=== PATIENT | female | born 1950 | race Caucasian/White ===

== ENCOUNTER 2020-12-27 18:34 | Emergency (ER) | payer MEDICARE ==
--- NOTE | 2020-12-27 19:18 | EDM.PDOC ---
ED HPI GENERAL MEDICAL PROBLEM - General Chief Complaint: General Stated Complaint: sinus problem Time Seen by Provider: 12/27/20 18:45 Source of Information: Reports: Patient History Limitations: Reports: No Limitations - History of Present Illness INITIAL COMMENTS - FREE TEXT/NARRATIVE: 70 YO WF PRESENTS TO ER WITH COMPLAINTS OF INTERMITTENT MILD EPISTAXIS AND NASAL DRAINAGE ON AND OFF SINCE OCT 2020. PT HAS BEEN SEEN AND TREATED FOR RECURRENT SINUS INFECTIONS SINCE THAT TIME. PT FINISHED A COURSE OF ANTIBIOTICS RECENTLY WHICH SHE BEGAN TAKING ON 12/19/2020. PT REPORTS FRUSTRATION WITH CONTINUED MILD EPISTAXIS PROMPTING ER EVALUATION. PT CURRENTLY TAKING ZYRTEC AND SALINE NASAL SPRAY. NO ACTIVE NOSE BLEEDING AT THIS TIME. PT DENIES FEVER/CHILLS, NO HEADACHE OR NECK PAIN. PT REPORTS NO SINUS PRESSURE OR INABILITY TO BLOW HER NOSE. TODAYS COMPLAINT IS MILD EPISTAXIS WHEN SHE BLOWS HER NOSE. Duration: Chronic Location: Reports: Face Severity: Mild Improves with: Reports: None Worsens with: Reports: None Treatments PLATINUM AND PALLADIUM KETTLE TENDER: Reports: Other (see below) - Related Data Allergies Allergy/AdvReac Type Severity Reaction Status Date / Time No Known Allergies Allergy Verified 12/27/20 18:37 Home Meds: Home Meds Aspirin [Halfprin] 81 mg PO DAILY 12/27/20 [History] Calcium Carbonate [Calcium] 600 mg PO BID 12/27/20 [History] Multivit-Min/Iron/Folic/Lutein [Centrum Silver Women Tablet] 1 each PO DAILY 12/27/20 [History] Omeprazole 20 mg PO DAILY 12/27/20 [History] Past Medical History HEENT History: Reports: Sinusitis PRODUCT INFO SPECIALIST History: Reports: Other (See Below) Other PRODUCT INFO SPECIALIST History: x3 C-SECTIONS - Infectious Disease History Infectious Disease History: Reports: Chicken Pox, Measles - Past Surgical History HEENT Surgical History: Reports: None, Tonsillectomy Endocrine Surgical History: Reports: Thyroidectomy Musculoskeletal Surgical History: Reports: Other (See Below) Other Musculoskeletal Surgeries/Procedures:: Foot surgery bilaterally Social & Family History - Tobacco Use Tobacco Use Status *Q: Never Tobacco User Second Hand Smoke Exposure: No - Caffeine Use Caffeine Use: Reports: Coffee - Recreational Drug Use Recreational Drug Use: No ED ROS GENERAL - Review of Systems Review Of Systems: See Below Constitutional: Reports: No Symptoms HEENT: Reports: Nosebleed, Nose Pain, Rhinitis, Sinus Problem. Denies: Dental Pain, Ear Discharge, Ear Pain, Eye Pain, Hearing Loss, Throat Pain, Throat Swelling Respiratory: Reports: No Symptoms Cardiovascular: Reports: No Symptoms Endocrine: Reports: No Symptoms GI/Abdominal: Reports: No Symptoms : Reports: No Symptoms Musculoskeletal: Reports: No Symptoms Skin: Reports: No Symptoms Neurological: Reports: No Symptoms Psychiatric: Reports: No Symptoms Hematologic/Lymphatic: Reports: No Symptoms Immunologic: Reports: No Symptoms ED EXAM, GENERAL - Physical Exam Exam: See Below Exam Limited By: No Limitations General Appearance: Alert, WD/WN, No Apparent Distress Ears: Normal External Exam, Normal Canal, Hearing Grossly Normal, Normal TMs Ear Exam: Bilateral Ear: Auricle Normal, Canal Normal, TM normal Nose: Nasal Tenderness, Nasal Drainage, Other (DRY MUCOUS MEMBRANES WITH MILD EPISTAXIS). No: Nasal Deformity, Nasal Swelling, Clear Rhinorrhea, Nasal Flaring Head: Atraumatic, Normocephalic. No: Facial Swelling, Facial Tenderness, Sinus Tenderness Neck: Normal Inspection, Supple, Non-Tender, Full Range of Motion Respiratory/Chest: No Respiratory Distress, Lungs Clear, Normal Breath Sounds, No Accessory Muscle Use, Chest Non-Tender Cardiovascular: Normal Peripheral Pulses, Regular Rate, Rhythm, No Edema, No Gallop, No JVD, No Murmur, No Rub GI/Abdominal: Normal Bowel Sounds, Soft, Non-Tender, No Organomegaly, No Distention, No Abnormal Bruit, No Mass Extremities: Normal Inspection, Normal Range of Motion, Non-Tender, Normal Capillary Refill, No Pedal Edema Neurological: Alert, Oriented, CN II-XII Intact, Normal Cognition, Normal Gait, Normal Reflexes, No Motor/Sensory Deficits Psychiatric: Normal Affect, Normal Mood Skin Exam: Warm, Dry, Intact, Normal Color, No Rash Lymphatic: No Adenopathy Course - Vital Signs Last Recorded V/S: Last Vital Signs Temp 97.3 F 12/27/20 18:51 Pulse 84 12/27/20 18:51 Resp 18 12/27/20 18:51 BP 147/88 H 12/27/20 18:51 Pulse Ox 98 12/27/20 18:51 Departure - Departure Time of Disposition: 19:32 Disposition: Home, Self-Care 01 Condition: Good Clinical Impression: Anterior epistaxis, Dry mucous membranes - Discharge Information Instructions: Nosebleed, Adult Referrals: Khushbu Oscar, DRY CLEANER HELPER [Primary Care Provider] - Additional Instructions: 1. DISCHARGE HOME 2. VASELINE/TRIPLE ANTIBIOTIC OINTMENT TO NASAL CAVITY 2-3X/DAY 3. STOP ZYRTEC/SALINE NASAL SPRAY 4. AVOID ANYTHING UP YOUR NOSE 5. FOLLOW UP WITH PCP FOR FURTHER EVALUATION AND TREATMENT IF NO IMPROVEMENT IN NEXT 2 WEEKS 6. CONSIDER ENT IF NO RESOLUTION 7. RETURN TO ER FOR WORSENING SYMPTOMS Sepsis Event Note (ED) - Evaluation Sepsis Screening Result: No Definite Risk - Focused Exam Vital Signs: Vital Signs Temp Pulse Resp BP Pulse Ox 12/27/20 18:51 97.3 F 84 18 147/88 H 98 - Assessment/Plan Assessment:: 1. EPISTAXIS 2. DRY MUCOUS MEMBRANES DUE TO ENVIRONMENTAL FACTORS AND MEDICATION OVER USE Plan: 1. DISCHARGE HOME 2. VASELINE/TRIPLE ANTIBIOTIC OINTMENT TO NASAL CAVITY 2-3X/DAY 3. STOP ZYRTEC/SALINE NASAL SPRAY 4. AVOID ANYTHING UP YOUR NOSE 5. FOLLOW UP WITH PCP FOR FURTHER EVALUATION AND TREATMENT IF NO IMPROVEMENT IN NEXT 2 WEEKS 6. CONSIDER ENT IF NO RESOLUTION 7. RETURN TO ER FOR WORSENING SYMPTOMS
== END 2020-12-27 19:45 | disposition home or self-care (01) ==
LOC: KA.ED 18:34
DX: R04.0 Epistaxis (principal); J34.89 Other specified disorders of nose and nasal sinuses; Z79.82 Long term (current) use of aspirin; Z79.899 Other long term (current) drug therapy
CPT/HCPCS: 99283

== ENCOUNTER 2021-01-12 11:05 | Emergency (ER) | payer MEDICARE ==
--- NOTE | 2021-01-12 11:51 | EDM.PDOC ---
ED HPI GENERAL MEDICAL PROBLEM - General Chief Complaint: ENT Problem Stated Complaint: THROAT IRRITATION Time Seen by Provider: 01/12/21 11:22 Source of Information: Reports: Patient History Limitations: Reports: No Limitations - History of Present Illness INITIAL COMMENTS - FREE TEXT/NARRATIVE: Presents emergency room escorted by family for difficulty swallowing. This been ongoing issue progressively worsening since September. Every time she takes small sips or eat small amount of bites of food she mainly coughs and has very difficult to get down. She does not vomit or regurgitated however she immediately coughs every time she swallows anything. She has lost 22 pounds since September. She has some chronic sinusitis had a recent CT scan by her PCP of her sinuses 4 days ago and some lab work as well. Lab work returned normal, there was some chronic changes CT scan of her sinuses however no acute problems. Patient had enough of it today had a coughing spells all night last night secondary to postnasal drip causing her to gag and cough. Patient arrives here anxious teary-eyed and wanting to find out what her problem is with swallowing. It has affected her quality life. - Related Data Allergies Allergy/AdvReac Type Severity Reaction Status Date / Time No Known Allergies Allergy Verified 01/12/21 11:28 Home Meds: Home Meds Aspirin [Halfprin] 81 mg PO DAILY 12/27/20 [History] Calcium Carbonate [Calcium] 600 mg PO BID 12/27/20 [History] Multivit-Min/Iron/Folic/Lutein [Centrum Silver Women Tablet] 1 each PO DAILY 12/27/20 [History] Omeprazole 20 mg PO DAILY 12/27/20 [History] Past Medical History HEENT History: Reports: Sinusitis PIPE ORGAN MECHANIC History: Reports: Other (See Below) Other PIPE ORGAN MECHANIC History: x3 C-SECTIONS - Infectious Disease History Infectious Disease History: Reports: Chicken Pox, Measles - Past Surgical History HEENT Surgical History: Reports: None, Tonsillectomy Endocrine Surgical History: Reports: Thyroidectomy Musculoskeletal Surgical History: Reports: Other (See Below) Other Musculoskeletal Surgeries/Procedures:: Foot surgery bilaterally Social & Family History - Caffeine Use Caffeine Use: Reports: Coffee ED ROS ENT - Review of Systems Review Of Systems: Comprehensive ROS is negative, except as noted in HPI. Constitutional: Reports: Weight Loss. Denies: Fever, Weakness HEENT: Reports: Sinus Problem, Throat Pain Respiratory: Reports: No Symptoms Cardiovascular: Reports: No Symptoms GI/Abdominal: Reports: Difficulty Swallowing. Denies: Abdominal Pain, Vomiting Psychiatric: Reports: Anxiety ED EXAM, ENT - Physical Exam Exam: See Below Exam Limited By: No Limitations General Appearance: Alert, WD/WN, Mild Distress Ears: Normal Canal, Hearing Grossly Normal, Normal TMs, Other (Small ear effusion bilaterally) Nose: Normal Inspection, Normal Mucousa, Injected Turbinates Mouth/Throat: Normal Inspection, Normal Lips, Normal Oropharynx, Normal Teeth. No: Dry Mucous Membrane, Hoarse Voice, Lip Swelling, Throat Swelling Head: Atraumatic, Normocephalic Neck: Normal Inspection, Supple, Non-Tender, Full Range of Motion, Other (No masses palpated). No: Thyromegaly Respiratory/Chest: No Respiratory Distress, Lungs Clear, Normal Breath Sounds Cardiovascular: Normal Peripheral Pulses, Regular Rate, Rhythm GI/Abdominal: Normal Bowel Sounds, Soft, Non-Tender Back: Normal Inspection, Full Range of Motion Extremities: Normal Inspection, Normal Range of Motion, Normal Capillary Refill Neurological: Alert, Oriented Psychiatric: Anxious Skin: Warm, Dry, Intact. No: Diaphoretic Lymphatic: No Adenopathy Course - Vital Signs Last Recorded V/S: Last Vital Signs Temp 97.6 F 01/12/21 12:08 Pulse 76 01/12/21 12:08 Resp 18 01/12/21 12:08 BP 146/86 H 01/12/21 11:40 Pulse Ox 97 01/12/21 12:08 - Re-Assessments/Exams Free Text/Narrative Re-Assessment/Exam: 01/12/21 12:09. After thorough history and physical exam I contacted on-call Alec Chowdhury. Discussed the case in thorough referral for GI in [place]. Patient has esophageal dysphagia. After very small sip of water she mainly coughs and gags. She is unable to tolerate foods she is down to eating a boiled egg. She has supportive pills in her mouth for 5 minutes to soften up when she can swallow them. I did consult GI physician Dr. Katelin Michael in [place]. Received guidelines for n.p.o. after midnight on Thursday's GI clinic will call her Thursday to schedule an emergent EGD. Patient will take protein shakes in the meantime. 01/12/21 12:16 Departure - Departure Time of Disposition: 11:58 Disposition: Home, Self-Care 01 Condition: Good Clinical Impression: Difficulty swallowing Qualifiers: Dysphagia type: esophageal phase Qualified Code(s): R13.10 - Dysphagia, unspecified - Discharge Information *PRESCRIPTION DRUG MONITORING PROGRAM REVIEWED*: No *COPY OF PRESCRIPTION DRUG MONITORING REPORT IN PATIENT MANDO: No Instructions: Thickening Liquids for Dysphagia Diet, Dysphagia Referrals: Khushbu Oscar, SMASHER [Primary Care Provider] - Forms: ED Department Discharge Additional Instructions: N.p.o. after thursday midnight. Full liquid diet until then. hold Aspirin. The GI clinic will call you Thursday if they do not call you by noon on Thursday call [phone] that is GI clinic. I spoke with Dr. Thomason (GI doctor). Sepsis Event Note (ED) - Evaluation Sepsis Screening Result: No Definite Risk - Focused Exam Vital Signs: Vital Signs Temp Pulse Resp BP Pulse Ox 01/12/21 12:08 97.6 F 76 18 97 01/12/21 11:40 146/86 H 01/12/21 11:21 97.6 F 88 20 148/92 H 98 01/12/21 11:17 148/92 H
== END 2021-01-12 12:28 | disposition home or self-care (01) ==
LOC: KA.ED 11:05
DX: R13.10 Dysphagia, unspecified (principal)
CPT/HCPCS: 99283

== ENCOUNTER 2025-01-29 13:40 | Emergency (ER) | payer MEDICAID, MEDICARE ==
[2025-01-29] MEDS ORDERED: Sodium Chloride 0.9% 10 ML Syringe FLUSH PRN (13:56)
[2025-01-29] MEDS: Alum Hydrox/Mag Hydrox/Simeth 30 ML, Lidocaine 2% 15 ML PO ONE (14:11)
[2025-01-29] MEDS: Aspirin 81 MG Tab.Chew PO ONE (14:11)
[2025-01-29 14:13] LABS: EOSINOPHILS ABSOLUTE AUTO 0.02 10^3/uL (0.10-0.30); EOSINOPHILS PERCENT AUTO 0.2 % (1.0-3.0); HEMATOCRIT 38.7 % (37.0-47.0); HEMOGLOBIN 13.2 g/dL (12.0-16.0); IMMATURE GRAN ABSOLUTE AUTO 0.01 10^3/uL (0.00-0.04); IMMATURE GRAN PERCENT AUTO 0.1 % (0.0-0.4); LYMPHOCYTES ABSOLUTE AUTO 1.54 10^3/uL (1.00-4.00); LYMPHOCYTES PERCENT AUTO 15.3 % (20.0-40.0); MEAN CORPUSCULAR HEMOGLOBIN 28.7 pg (27.0-31.0); MEAN CORPUSCULAR HGB CONC 34.1 g/dL (32.0-36.0); MEAN CORPUSCULAR VOLUME 84.1 fL (82.0-92.0); MEAN PLATELET VOLUME 10.8 fL (7.4-10.4); NEUTROPHILS ABSOLUTE AUTO 7.97 10^3/uL (2.50-7.00); NEUTROPHILS PERCENT AUTO 79.4 % (50.0-70.0); PLATELET COUNT,PLT 265 10^3/uL (150-400); RED CELL DISTRIBUTION WIDTH 14.5 % (11.5-14.5); WHITE BLOOD CELL COUNT,WBC 10.04 10^3/uL (5.00-10.00)
[2025-01-29] MEDS: Pantoprazole 40 MG Vial IVPUSH ONE (14:28)
[2025-01-29 14:30] LABS: ANION GAP 14.7 mmol/L (5-15); CALCIUM 9.4 mg/dL (8.7-10.3); CARBON DIOXIDE,CO2 26.1 mmol/L (21.0-32.0); CREATININE 0.6 mg/dL (0.51-1.17); EST CRCL DRUG DOSING (CG) 63.01 mL/min; POTASSIUM,K 3.8 mmol/L (3.5-5.1)
[2025-01-29] MEDS: Sodium Chloride 0.9% 1,000 ML IV ONE (14:42)
== END 2025-01-29 16:00 | disposition home or self-care (01) ==
LOC: KA.ED 13:40
DX: K44.9 Diaphragmatic hernia without obstruction or gangrene (principal); K21.9 Gastro-esophageal reflux disease without esophagitis; Z79.82 Long term (current) use of aspirin; Z79.899 Other long term (current) drug therapy
CPT/HCPCS: 36415; 71045; 80048; 84484; 85025; 93010; 96361; 96374; 99284; 99285; A9270; J2470; J7030; 93005